=== PATIENT | female | born 1990 | race African-American/Black ===

== ENCOUNTER 2018-02-04 10:30 | Emergency (ER) | payer OTHER ==
[~2018-02-04] VITALS: Ht 175.3 cm; Wt 67.4 kg
[2018-02-04 11:48] LABS: APPEARANCE CLEAR ((CLEAR)); BILIRUBIN NEGATIVE; BLOOD NEGATIVE; COLOR YELLOW ((YELLOW)); GLUCOSE (STRIP) NEGATIVE; KETONES NEGATIVE; LEUKOCYTES NEGATIVE; NITRITE NEGATIVE; PROTEIN (STRIP) NEGATIVE; SPECIFIC GRAVITY 1.017 (1.000-1.030); UROBILINOGEN 0.2 MG/DL (0.2-1.0)
[2018-02-04 12:04] LABS: CHLORIDE 104 mEq/L (99-109); POTASSIUM 3.6 mEq/L (3.7-5.4); SODIUM 138 mEq/L (136-147)
[2018-02-04 12:05] LABS: GLUCOSE 102 mg/dL (70-99)
[2018-02-04 12:09] LABS: CREATININE 0.8 mg/dL (0.6-1.3); GFR ESTIMATE (CALCULATED) > 59 mL/min/
[2018-02-04 12:10] LABS: UREA NITROGEN (BUN) 11 mg/dL (9-23)
[2018-02-04 12:19] LABS: QUANTITATIVE HCG < 4.0 MIU/ML
[2018-02-04] MEDS ORDERED: NORCO 5/3251 TABLET PO (14:04)
[2018-02-04 14:14] VITALS: BP 144/83
== END 2018-02-04 14:16 | disposition home or self-care (01) ==
LOC: EME 10:30
PROVIDERS: Physician Assistant
DX: N83.202 Unspecified ovarian cyst, left side (principal)
CPT/HCPCS: 76856; 80048; 81003; 84702; 99281; 99283; J1885